=== PATIENT | female | born 1980 | race Asian ===

== ENCOUNTER 2022-09-18 13:01 | Outpatient (CLI) | payer MEDICARE, MEDICAID, SELFPAY | END 2022-09-18 13:02 | disposition home or self-care (01) | PROVIDERS: PCP Nurse Practitioner Family; Visit Provider Nurse Practitioner Family | DX: Z01.10 Encounter for examination of ears and hearing without abnormal findings (principal) | CPT/HCPCS: 99199 ==

== ENCOUNTER 2023-12-08 07:54 | Outpatient (CLI) | payer MEDICARE, MEDICAID, SELFPAY | END 2023-12-08 07:55 | disposition home or self-care (01) | LOC: ANHAUDIO 07:56 | PROVIDERS: PCP Nurse Practitioner Family; Visit Provider Internal Medicine | DX: Z01.10 Encounter for examination of ears and hearing without abnormal findings (principal) | CPT/HCPCS: 99199 ==

== ENCOUNTER 2024-02-08 07:43 | Outpatient (CLI) | payer MEDICARE, MEDICAID, SELFPAY | END 2024-02-08 07:44 | disposition home or self-care (01) | LOC: ANHAUDIO 07:44 | PROVIDERS: PCP Nurse Practitioner Family | DX: Z01.10 Encounter for examination of ears and hearing without abnormal findings (principal); H61.23 Impacted cerumen, bilateral | CPT/HCPCS: 92555; 92567; 92579 ==